=== PATIENT | female | born 1945 | race Hispanic/Latino ===

== ENCOUNTER → 2020-01-15 | Outpatient (CLI) | payer OTHER | END | disposition home or self-care (01) | LOC: RAH 08:42 | PROVIDERS: ATTEND Internal Medicine Critical Care Medicine | DX: J18.9 Pneumonia, unspecified organism (principal); M47.814 Spondylosis without myelopathy or radiculopathy, thoracic region; I70.0 Atherosclerosis of aorta; I10 Essential (primary) hypertension | CPT/HCPCS: 71046; 76770; 93975 ==

== ENCOUNTER → 2020-04-08 | Outpatient (CLI) | payer OTHER | END | disposition home or self-care (01) | LOC: SHCH 12:29 | PROVIDERS: ATTEND Internal Medicine Cardiovascular Disease | DX: I10 Essential (primary) hypertension (principal); R06.00 Dyspnea, unspecified ==

== ENCOUNTER → 2020-04-11 | Outpatient (CLI) | payer OTHER ==
[~2020-04-11] MED LIST: IOHEXOL 350 MG/ML 100ML INFUS..BTL IV ONE
== END ==
LOC: RAH 07:33
PROVIDERS: ATTEND Internal Medicine Cardiovascular Disease
DX: K80.80 Other cholelithiasis without obstruction (principal); J98.11 Atelectasis; K76.9 Liver disease, unspecified; I10 Essential (primary) hypertension; I25.119 Atherosclerotic heart disease of native coronary artery with unspecified angina pectoris
CPT/HCPCS: 74174; Q9967

== ENCOUNTER → 2020-04-14 | Outpatient (CLI) | payer OTHER ==
[~2020-04-14] MED LIST changes: -IOHEXOL 350 MG/ML 100ML INFUS..BTL IV ONE; +REGADENOSON 0.4 MG/5 ML PF SYG IVP ONE; +REGADENOSON 0.4 MG/5 ML PF SYG IVP SCH
== END | disposition home or self-care (01) ==
LOC: SHCH 07:52
PROVIDERS: ATTEND Internal Medicine Cardiovascular Disease
DX: I25.119 Atherosclerotic heart disease of native coronary artery with unspecified angina pectoris (principal); R06.00 Dyspnea, unspecified
CPT/HCPCS: 78452; 93017; 96374; A9500 ×2; J2785

== ENCOUNTER → 2021-06-10 | Outpatient (CLI) | payer OTHER ==
[~2021-06-10] MED LIST changes: +ALBUTEROL 0.083% 2.5 MG/3 ML INH IH ONE; -REGADENOSON 0.4 MG/5 ML PF SYG IVP ONE; -REGADENOSON 0.4 MG/5 ML PF SYG IVP SCH
== END | disposition home or self-care (01) ==
LOC: RESP 12:35
PROVIDERS: ATTEND Internal Medicine Cardiovascular Disease
DX: J98.4 Other disorders of lung (principal); R06.00 Dyspnea, unspecified
CPT/HCPCS: 94060; 94727; 94729

== ENCOUNTER → 2023-07-27 | Outpatient (CLI) | payer OTHER | END | disposition home or self-care (01) | LOC: SHCH 10:48 | PROVIDERS: ATTEND Internal Medicine Cardiovascular Disease | DX: I08.2 Rheumatic disorders of both aortic and tricuspid valves (principal) | CPT/HCPCS: 93306 ==

== ENCOUNTER → 2024-08-11 | Outpatient (CLI) | payer OTHER | END | disposition home or self-care (01) | LOC: SHCH 10:47 | PROVIDERS: ATTEND Internal Medicine Cardiovascular Disease | DX: R00.2 Palpitations (principal) | CPT/HCPCS: 93306 ==

== ENCOUNTER → 2024-08-17 | Outpatient (CLI) | payer OTHER ==
[2024-08-17] MEDS: REGADENOSON 0.4 MG/5 ML PF SYG IVP ONE (12:18)
== END | disposition home or self-care (01) ==
LOC: SHCH 07:53
PROVIDERS: ATTEND Internal Medicine Cardiovascular Disease
DX: R00.2 Palpitations (principal); I13.10 Hypertensive heart and chronic kidney disease without heart failure, with stage 1 through stage 4 chronic kidney disease, or unspecified chronic kidney disease; N18.4 Chronic kidney disease, stage 4 (severe); R06.00 Dyspnea, unspecified; I70.1 Atherosclerosis of renal artery; Z79.899 Other long term (current) drug therapy
CPT/HCPCS: 78452; 93017; J2785; A9500 ×2

== ENCOUNTER → 2025-05-17 | Outpatient (CLI) | payer OTHER ==
[~2025-05-17] MED LIST changes: -ALBUTEROL 0.083% 2.5 MG/3 ML INH IH ONE; +IOHEXOL-350 75 ML VIAL IV ONE
--- NOTE | 2025-05-18 09:55 | HMCIMG ---
EXAM: CTA Neck with Intravenous Contrast. CLINICAL HISTORY: Occlusion and stenosis of bilateral carotid arteries TECHNIQUE: Axial CTA images of the neck were performed. Coronal and sagittal reformatted images were generated and reviewed. CT scan done according to ALARA (As Low as Reasonably Achievable). COMPARISON: None provided. FINDINGS: CCA, Carotid Bulb, and origin of the ECA are well opacified. At the origin of the right internal carotid artery, there is a mixed calcified and noncalcified plaque extending for a length of 1.2 cm, causing significant narrowing of up to 90%. Mild calcified plaque in the origin of the left internal carotid artery, causing mild narrowing. The rest of the ICA bilaterally are unremarkable. Vertebral arteries are well opacified. Jugular veins are well opacified Included great vessels of the aortic arch are grossly unremarkable. The included lung apices are grossly unremarkable. No acute bony changes. IMPRESSION: 1. At the origin of the right internal carotid artery, there is a mixed calcified and noncalcified plaque extending for a length of 1.2 cm, causing significant narrowing of up to 90%. 2. Mild calcified plaque in the origin of the left internal carotid artery, causing mild narrowing. /[place]
== END | disposition home or self-care (01) ==
LOC: RAH 07:32
PROVIDERS: ATTEND Internal Medicine Cardiovascular Disease
DX: I65.23 Occlusion and stenosis of bilateral carotid arteries (principal)
CPT/HCPCS: 70498; Q9967

== ENCOUNTER → 2025-07-09 | Outpatient (CLI) | payer OTHER ==
[2025-07-09] MEDS: REGADENOSON 0.4 MG/5 ML PF SYG IVP ONE (10:47)
--- NOTE | 2025-07-10 11:45 | HMCSR ---
APPROVED REPORT Height: 4 ft 8in Weight: 130 lbs TEST INDICATIONS CAD The imaging protocol used to acquire images was Rest Tc-99m/stress Tc-99m 1 day Consent: The procedure was explained and understood by the patient. Informerd consent was witnessed Charu Lamas RN First, low dose rest was performed then high dose stress. RESTING DATA: The resting ekg shows: NSR Rest SPECT myocardial perfusion imaging was performed in supine position minutes following the intra venous injection of 11 mCi of Tc-99 Sestamibi. Time of rest injection: Date: 07/09/2025 Time of rest imaging: Date: 07/09/2025 PHARMACOLOGIC STRESS: Pharmacologic stress test was performed by injecting regadenoson 0.4 mg IV push followed by the intra venous injection of 28 mCi of Tc-99 Sestamibi. Time of stress injection: Date: 07/09/2025 Time of stress imaging: Date: 07/09/2025 Heart Rate at time of stress injection: 64 bpm. The images were gated to evaluate regional wall motion and calculate left ventricular ejection fracti on. STRESS DETAILS Reason for Termination: Infusion complete Stress Symptoms: Anxious Max HR Achieved: 83 bpm % of APMHR Achieved: 69 Max Blood Pressure: 165/52 mmHg Stress ECG: NSR LEFT VENTRICLE Size: The left ventricular size is normal. Systolic Function:The left ventricular systolic function is normal. Wall Motion: No regional wall motion abnormalities noted. The left ventricular ejection fraction was calculated to be 86%.TID = . LV PERFUSION fixed anterior apical, septal, and inferior wall thinning defect with no evidence of reversible ische bry. Conclusion The left ventricular size is normal. fixed anterior apical, septal, and inferior wall thinning defect with no evidence of reversible ische bry. No regional wall motion abnormalities noted. fixed anterior apical, septal, and inferior wall thinning defect with no evidence of reversible ische bry. The left ventricular ejection fraction was calculated to be 86%.
== END | disposition home or self-care (01) ==
LOC: RAH 08:41
PROVIDERS: ATTEND Internal Medicine Cardiovascular Disease
DX: I25.10 Atherosclerotic heart disease of native coronary artery without angina pectoris (principal)
CPT/HCPCS: 78452; 93017; J2785; A9500 ×2

== ENCOUNTER 2025-08-01 07:49 | Day surgery (SDC) | payer OTHER ==
[2025-07-30 12:40] VITALS: BP 139/52; PULSE 62; RESP 18; TEMP 97.3
[2025-07-30 12:40] LABS: IMMATURE GRANULOCYTE ABSOLUTE 0.01 K/uL (0-1); NUCLEATED RED BLOOD CELLS 0.0 % (0.0-0.19); PLATELET COUNT (AUTO) 136 K/uL (130-400); RED BLOOD CELL COUNT(AUTO) 3.53 MIL/uL (4.00-5.50); RED CELL DISTRIBUTION WIDTH 12.5 % (11.0-15.5); WHITE BLOOD COUNT (AUTO) 3.7 K/uL (4.8-10.8)
[2025-07-30 12:46] LABS: CREATININE 0.8 mg/dL (0.5-1.0); GLOMERULAR FILTR. RATE CALC 75.0 mL/min (>90); GLUCOSE,RANDOM 76.0 mg/dL (70-105); SODIUM SERUM 142.0 mmol/L (136-145); UREA NITROGEN, BLOOD 13.0 mg/dL (7-18)
[2025-07-30 12:48] LABS: INR 1.07 (0.85-1.15)
--- NOTE | 2025-07-30 13:28 | EKG ---
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
[2025-07-30 13:37] LABS: APPEARANCE,URINE CLOUDY (CLEAR); GLUCOSE, URINE (UA) NEGATIVE (NEGATIVE); LEUKOCYTE ESTERASE ,URINE 250 Leu/uL (NEGATIVE); NITRATE,URINE NEGATIVE (NEGATIVE); OCCULT BLOOD,URINE NEGATIVE (NEGATIVE)
[2025-07-30 13:46] LABS: ADD UA MICROSCOPIC YES
[2025-07-30 13:47] LABS: SQUAMOUS EPITHELIAL CELL,UR FEW /HPF (0-2)
--- NOTE | 2025-07-30 14:46 | HMCIMG ---
EXAM: CR Chest, 1 View. CLINICAL HISTORY: PRE OP COMPARISON: X-ray chest 01/15/2020 FINDINGS: LUNGS: There is no mass, infiltrate, or acute pulmonary abnormality. PLEURAL SPACES: No evidence of pleural effusion or pneumothorax. MEDIASTINUM: Cardiac size and mediastinal contours within normal limits. Mild to moderate aortic arch calcific atherosclerosis BONES: No acute osseous abnormality. IMPRESSION: No acute cardiopulmonary pathology is evident. /[place]
--- NOTE | 2025-07-31 09:30 | NUR ---
RE: UA/CX REPORTED UA RESULTS/URINE CX TO BRUNO BOWLES NP. RECEIVED ORDERS FOR ROCEPHIN 1 GM IV IN AM BEFORE PROCEDURE. PENDING SENSITIVITIES RESULTS.
[2025-08-01] VITALS (11 sets, daily range): BP systolic 114–142; BP diastolic 32–63; PULSE 55–63; RESP 12–18; TEMP 97–98.3
[~2025-08-01] VITALS: Ht 142.2 cm; Wt 57.8 kg
[~2025-08-01 07:49] MED LIST changes: +AMLO-257 PO; +ASPI-1443 PO; +CLOP75TA32 PO; +GABA300C PO; +HYDR200T75 PO; -IOHEXOL-350 75 ML VIAL IV ONE; +METO-409 PO; +ROSU10TA98 PO; +TERA2CAP4 PO; +VALS320T16 PO; +VITAD50000 PO
[2025-08-01] MEDS ORDERED: IOHEXOL 350 MG/ML 100ML INFUS..BTL IV ONE (11:23)
[2025-08-01] MEDS ORDERED: LIDOCAINE HCL 400MG/20ML VIAL ONE (11:23)
[2025-08-01] MEDS ORDERED: NITROGLYCERIN 50MG VIAL ONE (11:23)
[2025-08-01] MEDS ORDERED: HEParin-NS 1,000 UNIT/500 ML 1,000 ML IV ONE (11:23)
[2025-08-01] MEDS ORDERED: SODIUM BICARB 50MEQ 50ML VIAL 50 ML ONE (11:25)
[2025-08-01] MEDS ORDERED: MIDAZOLAM HCL 1 MG/ML 2ML VIAL ONE (11:53)
[2025-08-01] MEDS ORDERED: 0.9%NACL 1000ML 1,000 ML IV SCH (13:00)
--- NOTE | 2025-08-01 14:48 | CCATH ---
PROCEDURE NOTE PROCEDURES: * Left heart catheterization. * Selective right and left coronary arteriogram. * Selective right and left carotid angiogram. * Conscious sedation for 30 minutes. INDICATIONS: * Coronary artery disease with elevated calcium score and recurrent angina. * Abnormal exercise test. * Severe carotid stenosis. COMPLICATIONS: None. TOTAL CONTRAST: Approximately 60 mL. DESCRIPTION OF PROCEDURE: The patient was taken to the cardiac catheterization lab after appropriate operative consent was signed. She was prepped and draped in the usual fashion. After conscious sedation was administered, the right common femoral artery region was infiltrated with 2% Xylocaine without epinephrine. This was then accessed utilizing ultrasound guidance and a 6-[place] sheath was advanced to with modified Seldinger technique. A 6-[place] Citizen ____ diagnostic catheter was advanced, selectively engaging the ostium of the left main. Imaging was obtained in multiple planes. Left main was a moderately sized vessel that was short in its course and was free of disease. It bifurcated into an LAD and the circumflex system. There were 2 tiny intermediates that did not supply much in the way of territory. The LAD was a moderately sized vessel that gave rise to 2 moderately sized diagonal branches and ongoing LAD. There was a small segment of an intramyocardial bridge distal to the second diagonal which is of minor magnitude proximal to the small segment of the distal LAD. Circumflex was a large vessel that gave rise to a tortuous first obtuse marginal branch and a large second obtuse marginal branch. The circ essentially was free of disease. The right coronary artery was a huge vessel that gave rise to acute marginal, PD and PLVB. There was an ostial 60% stenotic lesion; however, there was no catheter damping or ventricularization. The right coronary catheter was then withdrawn and advanced into the right common carotid artery, which was imaged in multiplane. The right common carotid artery was normal as was the external carotid artery. The right internal carotid artery had an 80% ostial to proximal lesion that was seen in multiple planes. The intracerebral circulation was normal with the right middle and right anterior cerebral arteries. The catheter was then withdrawn and engaged in the left common carotid artery, which was imaged in multiple planes. This was remarkable for normal left common carotid. The left internal and external carotid arteries were normal. The intracerebral circulation was normal with adequate flow in the left middle and anterior cerebral arteries. At this point, the procedure was completed, the Perclose was utilized with good hemostasis. The patient tolerated it well and left the cardiac catheterization lab in stable condition. FINAL IMPRESSION: * Ostial right coronary artery stenosis at approximately 60%. * Severe right internal carotid artery stenosis. * Preserved left ventricular systolic function by noninvasive studies. No aortic stenosis. PLAN: Continue to optimize medical management. We will consider intervention for the right coronary artery for refractory symptoms. The patient will be managed with right TCAR. TID: [id number] RECEIPT: [id number]
== END 2025-08-01 18:08 | disposition home or self-care (01) ==
LOC: DAH 07:49
PROVIDERS: ATTEND Internal Medicine Cardiovascular Disease
DX: I65.21 Occlusion and stenosis of right carotid artery (principal); I25.118 Atherosclerotic heart disease of native coronary artery with other forms of angina pectoris; I25.84 Coronary atherosclerosis due to calcified coronary lesion; R94.39 Abnormal result of other cardiovascular function study; N18.30 Chronic kidney disease, stage 3 unspecified; Z79.899 Other long term (current) drug therapy
CPT/HCPCS: 80048; 83880; 85025; 85610; 85730; 87086 ×2; 81001; 36415; 71045; 93005; 93458; 36223; 87186; 99156; 99157; C1894 ×2; C1760; J3010; J3490 ×3; J0360; J0696; J2250; J1644; Q9967; A4215; A4222; A4221; A4663; A4216; A4606; A4223 ×3